=== PATIENT | female | born 1940 | race Caucasian/White ===

== ENCOUNTER → 2016-10-09 | Outpatient (CLI) | payer BC ==
[~2016-10-09] MED LIST: IBUP-1050 PO; LEVO75TA PO; TRAMTAB5 PO
--- NOTE | 2016-10-09 14:27 | DIAGNOSTIC IMAGING REPORT ---
KUB CLINICAL HISTORY: PAIN IN LOWER ABDOMEN pain. Nephrocalcinosis. COMPARISON STUDY: 01/20/2016 FINDINGS: Calcification medial to leads to the right of the transverse process of L3. This measures 5 mm and is unchanged from the prior study. Renal and psoas shows otherwise are unremarkable. Bowel pattern is nonobstructive. IMPRESSION: 1. 5 mm calcification medial right kidney. 2. Nonobstructive bowel pattern. 3. No change from the prior study. Electronically signed by: Konrad hC M.D. 10/09/2016 2:26 PM Dictated Date/Time: 10/09/2016 2:25 PM
--- NOTE | 2016-10-09 14:33 | DIAGNOSTIC IMAGING REPORT ---
LUMBAR SPINE 5 VIEWS HISTORY: Pain PAIN IN LOWER BACK M54.5 COMPARISON: None. FINDINGS: Mild S-shaped scoliosis. Moderate degenerative intervertebral disc change. Grade 1. Reversal subluxation L4 and L5 secondary to degenerative changes of posterior elements. Calcification measuring 5 mm medial to the right kidney. No subluxation. The 10th IMPRESSION: 1. Degenerative change and scoliosis of the lumbar spine. 2. No acute process. 3. 5 mm calcification medial margin right kidney Electronically signed by: Konrad Ch M.D. 10/09/2016 2:32 PM Dictated Date/Time: 10/09/2016 2:31 PM
[2016-10-09 14:41] LABS: BASO % 0.2 %; BASO ABS # 0.02 K/uL (0-0.2); COMPLETE YES; EOS % 1.2 %; HEMATOCRIT 46.8 % (37-47); IG% 0.2 %; LYMPH % 21.4 %; LYMPH ABS # 2.23 K/uL (1.2-3.4); MEAN CELL VOLUME 89.3 fL (80-100); MEAN CORPUSCULAR HEMOGLOBIN 29.8 pg (25-34); MEAN CORPUSCULAR HGB CONC 33.3 g/dl (32-36); MEAN PLATELET VOLUME 10.2 fL (7.4-10.4); MONO % 6.2 %; NEUT % 70.8 %; PLATELET COUNT 269 K/uL (130-400); RED BLOOD COUNT 5.24 M/uL (4.2-5.4); WHITE BLOOD COUNT 10.43 K/uL (4.8-10.8)
[2016-10-09 15:17] LABS: BLOOD UREA NITROGEN 11 mg/dl (7-18); CALCIUM 9.3 mg/dl (8.5-10.1); CARBON DIOXIDE 32 mmol/L (21-32); CHLORIDE 108 mmol/L (98-107); CREATININE 0.88 mg/dl (0.60-1.20); GLUCOSE 84 mg/dl (70-99); POTASSIUM 3.9 mmol/L (3.5-5.1); SODIUM 147 mmol/L (136-145)
[2016-10-09 15:27] LABS: THYROID STIMULATING HORMONE 0.318 uIu/ml (0.300-4.500)
== END | disposition home or self-care (01) ==
LOC: C.RAD 13:03
PROVIDERS: ATTEND Family Medicine
DX: M54.5 Low back pain (principal); E03.9 Hypothyroidism, unspecified

== ENCOUNTER 2016-10-26 11:04 | Emergency (ER) | payer BC ==
[~2016-10-26] VITALS: Ht 157.5 cm; Wt 59.0 kg
[~2016-10-26 11:04] MED LIST changes: -IBUP-1050 PO
[2016-10-26 11:07] VITALS: TEMP 37; Ht 157.5 cm; Wt 59.0 kg
[2016-10-26] MEDS ORDERED: IBUP-1050 PO (11:32)
[2016-10-26] MEDS ORDERED: SODIUM CHLORIDE 0.9% 1000ML 1,000 ML IV STA (11:39)
[2016-10-26] MEDS ORDERED: SODIUM CHLORIDE 0.9% 500ML 500 ML IV STA (11:39)
[2016-10-26 11:50] LABS: BASO % 0.1 %; BASO ABS # 0.01 K/uL (0-0.2); COMPLETE YES; EOS % 0.3 %; HEMATOCRIT 48.6 % (37-47); IG% 0.3 %; LYMPH % 5.1 %; LYMPH ABS # 0.39 K/uL (1.2-3.4); MEAN CELL VOLUME 87.6 fL (80-100); MEAN CORPUSCULAR HEMOGLOBIN 29.7 pg (25-34); MEAN PLATELET VOLUME 10.1 fL (7.4-10.4); MONO % 10.1 %; NEUT % 84.1 %; PLATELET COUNT 231 K/uL (130-400); RED BLOOD COUNT 5.55 M/uL (4.2-5.4); WHITE BLOOD COUNT 7.61 K/uL (4.8-10.8)
[2016-10-26 11:59] LABS: ALT/SGPT 16 U/L (12-78); AST/SGOT 19 U/L (15-37); BLOOD UREA NITROGEN 13 mg/dl (7-18); BUN/CREATININE RATIO 14.4 (10-20); CALCIUM 8.9 mg/dl (8.5-10.1); CARBON DIOXIDE 28 mmol/L (21-32); CHLORIDE 105 mmol/L (98-107); CREATININE 0.88 mg/dl (0.60-1.20); GLUCOSE 102 mg/dl (70-99); POTASSIUM 3.6 mmol/L (3.5-5.1); SODIUM 142 mmol/L (136-145)
[2016-10-26 12:02] LABS: ALKALINE PHOSPHATASE 93 U/L (45-117)
[2016-10-26 12:04] LABS: URINE APPEARANCE CLEAR (CLEAR); URINE BILIRUBIN NEG (NEG); URINE COLOR YELLOW; URINE EPITHELIAL CELL AUTO >30 /lpf (0-5); URINE NITRITE NEG (NEG); URINE PH 5.5 (4.5-7.5); URINE SPECIFIC GRAVITY 1.019 (1.000-1.030); UROBILINOGEN NEG (NEG); ZZUR CULT IF INDIC CLEAN CATCH NO
[2016-10-26 12:07] LABS: MANUAL MICROSCOPIC REQUIRED? NO; REVIEW REQ? YES
--- NOTE | 2016-10-26 12:09 | DIAGNOSTIC IMAGING REPORT ---
ABDOMEN AND PELVIS CT WITHOUT CONTRAST CT DOSE: 268.83 mGy.cm HISTORY: Flank pain R flank pain TECHNIQUE: Multiaxial CT images of the abdomen and pelvis were performed without contrast. COMPARISON STUDY: The 2014 FINDINGS: Lung bases are clear. Hypodensities in process within the liver and spleen are unchanged. Small benign nodule of the right adrenal is unchanged. Several punctate nonobstructing left renal calcifications. 8 x 6 mm partially obstructing calculus right renal pelvis. Mild fullness right renal collecting system. Several additional nonobstructing cortical right renal calcifications. Pancreas is unremarkable. Bowel pattern is remarkable for chronic sigmoid diverticulosis. This is unchanged in the prior exam. There is no evidence for acute diverticulitis. IMPRESSION: 1. Partially obstructing calculus right renal pelvis measuring 8 x 6 mm. 2. Fullness right renal collecting system. 3. Additional nonobstructing renal calcifications bilaterally. 4. Chronic sigmoid diverticulosis. Electronically signed by: Konrad Ch M.D. 10/26/2016 12:08 PM Dictated Date/Time: 10/26/2016 12:04 PM
--- NOTE | 2016-10-26 12:18 | EMERGENCY ROOM VISIT NOTE ---
History Report prepared by Devorah: Janet Orourke Under the Supervision of: Dr. Shruti Vaughan M.D. First contact with patient: 11:28 Chief Complaint: FLANK PAIN Stated Complaint: RT FLANK PAIN History of Present Illness The patient is a 76 year old female who presents to the Emergency Room with complaints of persistent right flank pain. Her pain sometimes radiates to the groin. She states that she has a kidney stone which she believes might be the source of her pain. She is feeling dehydrated, but reports being unable to drink water. She has a cough and a "grinding headache". She gets migraines sometimes, but her current headache is unlike her migraines. She denies any fever. 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 Review of Systems See HPI for pertinent positives & negatives. A total of 10 systems reviewed and were otherwise negative. Past Medical & Surgical Medical Problems: (1) Kidney stones Surgical Problems: (1) H/O lithotripsy Family History Cancer Diabetes mellitus Heart disease Hypertension Lung disease Social History Smoking Status: Former Smoker Drug Use: none Marital Status: Housing Status: lives with significant other Occupation Status: retired Current/Historical Medications Scheduled Levothyroxine Sodium (Synthroid), 75 MCG PO QAM Scheduled PRN Ibuprofen (Advil), 200 MG PO DAILY PRN for Pain Allergies Coded Allergies: Ciprofloxacin (Verified Allergy, Mild, REDNESS AND ITCHING, 10/26/16) Morphine (Verified Allergy, Mild, VOMITING, 10/26/16) Penicillins (Verified Allergy, Mild, ITCHING, 10/26/16) Physical Exam Vital Signs Date Time Temp Pulse Resp B/P Pulse Ox O2 Delivery O2 Flow Rate FiO2 10/26/16 14:40 70 18 110/68 98 10/26/16 14:04 87 21 10/26/16 14:00 124/67 10/26/16 13:49 82 20 92 10/26/16 13:34 78 23 93 10/26/16 13:30 152/72 10/26/16 12:49 84 21 96 10/26/16 12:34 82 18 95 10/26/16 12:30 118/58 10/26/16 12:30 80 16 118/58 96 Room Air 10/26/16 12:27 81 10/26/16 12:08 100/72 10/26/16 11:48 79 18 167/85 93 Room Air 10/26/16 11:07 37.0 103 20 128/67 93 Physical Exam Vital signs reviewed. General: Well-appearing, in no significant distress. HEENT: No scleral icterus, PERRLA, neck supple. Atraumatic. Cardiovascular: Regular rate and rhythm, no extra sounds. Pulmonary: Clear to auscultation bilaterally, normal work of breathing. Abdomen: Soft, nontender, nondistended, positive bowel sounds. Musculoskeletal: Atraumatic, no peripheral edema, mildly tender to palpation of right flank, no CVA tenderness. Neurologic: Patient awake alert and oriented x 3. Skin: Warm, dry, no rash Medical Decision & Procedures ER Provider Diagnostic Interpretation: CT results as stated below per my interpretation and radiologist interpretation. Other radiology results as stated below per my review and radiologist interpretation: ABDOMEN AND PELVIS CT WITHOUT CONTRAST CT DOSE: 268.83 mGy.cm HISTORY: Flank pain R flank pain TECHNIQUE: Multiaxial CT images of the abdomen and pelvis were performed without contrast. COMPARISON STUDY: The 2014 FINDINGS: Lung bases are clear. Hypodensities in process within the liver and spleen are unchanged. Small benign nodule of the right adrenal is unchanged. Several punctate nonobstructing left renal calcifications. 8 x 6 mm partially obstructing calculus right renal pelvis. Mild fullness right renal collecting system. Several additional nonobstructing cortical right renal calcifications. Pancreas is unremarkable. Bowel pattern is remarkable for chronic sigmoid diverticulosis. This is unchanged in the prior exam. There is no evidence for acute diverticulitis. IMPRESSION: 1. Partially obstructing calculus right renal pelvis measuring 8 x 6 mm. 2. Fullness right renal collecting system. 3. Additional nonobstructing renal calcifications bilaterally. 4. Chronic sigmoid diverticulosis. Electronically signed by: Konrad Ch M.D. 10/26/2016 12:08 PM CHEST 2 VIEWS ROUTINE CLINICAL HISTORY: Right flank pain. COMPARISON STUDY: Chest radiograph April 21, 2015. FINDINGS: Incidental note is made of bilateral breast implants. Lung volumes are normal. There is no pneumothorax or pleural effusion. Pulmonary vascularity is normal. Cardiac size is normal. Mediastinal contours are normal. The appearance of the chest is unchanged. IMPRESSION: No acute cardiopulmonary findings. Electronically signed by: Jack Rojas M.D. 10/26/2016 1:14 PM Laboratory Results 10/26/16 11:25 Red Blood Count 5.55, Mean Corpuscular Volume 87.6, Mean Corpuscular Hemoglobin 29.7, Mean Corpuscular Hemoglobin Concent 34.0, Mean Platelet Volume 10.1, Neutrophils (%) (Auto) 84.1, Lymphocytes (%) (Auto) 5.1, Monocytes (%) (Auto) 10.1, Eosinophils (%) (Auto) 0.3, Basophils (%) (Auto) 0.1, Neutrophils # (Auto ) 6.40, Lymphocytes # (Auto) 0.39, Monocytes # (Auto) 0.77, Eosinophils # (Auto ) 0.02, Basophils # (Auto) 0.01 10/26/16 11:25 Test 10/26/16 11:10 10/26/16 11:25 10/26/16 11:46 Urine Color YELLOW Urine Appearance CLEAR (CLEAR) Urine pH 5.5 (4.5-7.5) Urine Specific [place] 1.019 (1.000-1.030) Urine Protein 2+ (NEG) Urine Glucose (UA) NEG (NEG) Urine Ketones 1+ (NEG) Urine Occult Blood 3+ (NEG) Urine Nitrite NEG (NEG) Urine Bilirubin NEG (NEG) Urine Urobilinogen NEG (NEG) Urine Leukocyte Esterase TRACE (NEG) Urine WBC (Auto) 5-10 /hpf (0-5) Urine RBC (Auto) >30 /hpf (0-4) Urine Hyaline Casts (Auto) 1-5 /lpf (0-5) Urine Epithelial Cells (Auto) >30 /lpf (0-5) Urine Bacteria (Auto) NEG (NEG) Urine Renal Epithelial Cells /lpf (0-5) White Blood Count 7.61 K/uL (4.8-10.8) Red Blood Count 5.55 M/uL (4.2-5.4) Hemoglobin 16.5 g/dL (12.0-16.0) Hematocrit 48.6 % (37-47) Mean Corpuscular Volume 87.6 fL (80-100) Mean Corpuscular Hemoglobin 29.7 pg (25-34) Mean Corpuscular Hemoglobin Concent 34.0 g/dl (32-36) Platelet Count 231 K/uL (130-400) Mean Platelet Volume 10.1 fL (7.4-10.4) Neutrophils (%) (Auto) 84.1 % Lymphocytes (%) (Auto) 5.1 % Monocytes (%) (Auto) 10.1 % Eosinophils (%) (Auto) 0.3 % Basophils (%) (Auto) 0.1 % Neutrophils # (Auto) 6.40 K/uL (1.4-6.5) Lymphocytes # (Auto) 0.39 K/uL (1.2-3.4) Monocytes # (Auto) 0.77 K/uL (0.11-0.59) Eosinophils # (Auto) 0.02 K/uL (0-0.5) Basophils # (Auto) 0.01 K/uL (0-0.2) RDW Standard Deviation 42.9 fL (36.4-46.3) RDW Coefficient of Variation 13.5 % (11.5-14.5) Immature Granulocyte % (Auto) 0.3 % Immature Granulocyte # (Auto) 0.02 K/uL (0.00-0.02) Anion Gap 9.0 mmol/L (3-11) Est Creatinine Clear Calc Drug Dose 43.0 ml/min Estimated GFR () 74.0 Estimated GFR (Non- 63.8 BUN/Creatinine Ratio 14.4 (10-20) Calcium Level 8.9 mg/dl (8.5-10.1) Total Bilirubin 0.3 mg/dl (0.2-1) Direct Bilirubin < 0.1 mg/dl (0-0.2) Aspartate Amino Transf (AST/SGOT) 19 U/L (15-37) Alanine Aminotransferase (ALT/SGPT) 16 U/L (12-78) Alkaline Phosphatase 93 U/L (45-117) Total Protein 7.7 gm/dl (6.4-8.2) Albumin 4.0 gm/dl (3.4-5.0) Influenza Type A (RT-PCR) Neg for Influ A (NEG) Influenza Type A Antigen Neg for Influ A (NEG) Influenza Type B Antigen Neg for Influ B (NEG) Influenza Type B (RT-PCR) Neg for Influ B (NEG) Laboratory results per my review. Medications Administered Medications (Trade) Dose Ordered Sig/Kim Route Start Time Stop Time Status Last Admin Dose Admin Sodium Chloride 500 ml @ 999 mls/hr Q31M STAT IV 10/26/16 11:39 10/26/16 12:09 DC 10/26/16 11:53 999 MLS/HR Sodium Chloride (Nss 1000ml) 1,000 ml @ 125 mls/hr Q8H STAT IV 10/26/16 11:39 10/26/16 14:57 DC 10/26/16 12:40 125 MLS/HR ED Course 1139: Past medical records reviewed. The patient was evaluated in room A10. A complete history and physical examination was performed. NSS 1000 ml @ 125 mls/ hr IV, NSS 500 ml @ 999 mls/hr IV. 1350: I reassessed the patient at this time. She is feeling better and resting comfortably. I discussed the results and treatment plan with the patient. I answered all pertaining questions that she had. She expressed understanding and verbalized agreement. The patient will be discharged home. Medical Decision Differential diagnosis: Etiologies such as renal colic, appendicitis, diverticulitis, mesenteric ischemia, aortic pathology, infections, inflammatory bowel disease, PUD, biliary pathology, UTI, as well as others were entertained. This pt was evaluated and appeared to be in some discomfort. IV access was obtained and lab work was drawn. Recent XR results were reviewed. CT abd and pelvis was performed to confirm this stone as the source of pain for 2 weeks. The stone is 8x6 mm and partially obstructing. Pt was hydrated with NSS, she declined pain medication. Pt was informed of the findings. An appt with Dr Edwards was scheduled for early next week (5 days). There is no sign of infection. Pt was asked to return to the ED for worsening of symptoms or any medical concerns. Impression Primary Impression: Calculus of proximal right ureter Scribe Attestation The scribe's documentation has been prepared under my direction and personally reviewed by me in its entirety. I confirm that the note above accurately reflects all work, treatment, procedures, and medical decision making performed by me. Departure Information Dispostion Home / Self-Care Referrals Stuart Templeton D.O. (PCP) Armani Paula MD Forms HOME CARE DOCUMENTATION FORM, IMPORTANT VISIT INFORMATION Patient Instructions My [facility] Additional Instructions Diagnosis: Right ureteral calculus [place] one tablet every 4-6 hours as needed for severe pain. Do not drive after taking this medication. Drink plenty of clear fluids. Follow-up with urology, Dr. xavi Paula on Sunday10/31/16 at 9:20 as scheduled by case management. Turn to the emergency department for worsening of pain, fever or any medical concerns.
--- NOTE | 2016-10-26 13:16 | DIAGNOSTIC IMAGING REPORT ---
CHEST 2 VIEWS ROUTINE CLINICAL HISTORY: Right flank pain. COMPARISON STUDY: Chest radiograph April 21, 2015. FINDINGS: Incidental note is made of bilateral breast implants. Lung volumes are normal. There is no pneumothorax or pleural effusion. Pulmonary vascularity is normal. Cardiac size is normal. Mediastinal contours are normal. The appearance of the chest is unchanged. IMPRESSION: No acute cardiopulmonary findings. Electronically signed by: Jack Rojas M.D. 10/26/2016 1:14 PM Dictated Date/Time: 10/26/2016 1:13 PM
[2016-10-26 14:32] LABS: INFLUENZA A PCR Neg for Influ A (NEG); INFLUENZA B PCR Neg for Influ B (NEG)
[2016-10-26 14:40] VITALS: BP 110/68; PULSE 70; O2SAT 98
== END 2016-10-26 14:43 | disposition home or self-care (01) ==
LOC: C.EDB 11:05 → C.EDA 14:43
DX: N20.1 Calculus of ureter (principal); Z87.442 Personal history of urinary calculi; Z87.891 Personal history of nicotine dependence; Z79.899 Other long term (current) drug therapy

== ENCOUNTER → 2016-10-30 | Outpatient (CLI) | payer BC ==
[~2016-10-30] MED LIST changes: +IBUP-1050 PO; -TRAMTAB5 PO
--- NOTE | 2016-10-31 08:02 | MAMMOGRAPHY REPORT ---
BILATERAL DIGITAL SCREENING MAMMOGRAM WITH CAD: 10/30/2016 CLINICAL HISTORY: Routine screening examination. TECHNIQUE: Bilateral CC and MLO views of the breasts with and without implant displacement views wer e obtained. Current study was also evaluated with a Computer Aided Detection (CAD) system. COMPARISON: Comparison is made to exams dated: 10/27/2015 mammogram, 09/21/2014 mammogram, 11/04/2013 m ammogram, 09/21/2014 ultrasound, 11/01/2012 mammogram, and 10/31/2011 mammogram - [facility] enter. BREAST COMPOSITION: There are scattered areas of fibroglandular density in both breasts. FINDINGS: Bilateral subglandular silicone implants are stable compared to prior mammograms. A 4 mm circumscribed mass in the left breast, along the posterior nipple line on the MLO views is stable ma mmographically dating back to at least 11/01/2012, therefore likely benign. Global asymmetry of the right breast compared to the left is unchanged on all available prior mammograms dating back to at least 10/09/2007, most likely the patient's baseline. There are scattered benign rim calcifications bilaterally. No new suspicious mass, architectural distortion or cluster of microcalcifications is seen. IMPRESSION: ACR BI-RADS CATEGORY 1: NEGATIVE There is no mammographic evidence of malignancy. A 1 year screening mammogram is recommended. The p atient will receive written notification of the results. Approximately 10% of breast cancers are not detected with mammography. A negative mammographic repor t should not delay biopsy if a clinically suggestive mass is present. Marley Bryant M.D. ay/:10/30/2016 16:39:07 Museum Director: Janay ORTA(Ricky)(Yany)([place]), [facility] letter sent: Normal 1/2 BI-RADS Code: ACR BI-RADS Category 1: Negative
== END | disposition home or self-care (01) ==
LOC: C.MAMM 14:46
PROVIDERS: ATTEND Family Medicine
DX: Z12.31 Encounter for screening mammogram for malignant neoplasm of breast (principal); Z98.82 Breast implant status; M85.851 Other specified disorders of bone density and structure, right thigh; M85.852 Other specified disorders of bone density and structure, left thigh

== ENCOUNTER → 2016-11-16 | Outpatient (CLI) | payer BC ==
--- NOTE | 2016-11-16 14:15 | DIAGNOSTIC IMAGING REPORT ---
KUB CLINICAL HISTORY: Nephrolithiasis. Study. COMPARISON STUDY: 10/09/2016 FINDINGS: Is a lumbar levoscoliosis. There are stable pelvic basin calcifications likely represent phleboliths. There is a 12 mm calcification projected over the region the right renal pelvis consistent with a calculus. There is additional punctate mid pole right renal calcification. There are 2 punctate left renal calcifications. The findings are consistent with additional tiny renal calculi. IMPRESSION: 1. Bilateral nephrolithiasis including a 12 mm calculus at the level of the right renal pelvis Electronically signed by: Bogdan Broussard M.D. 11/16/2016 2:14 PM Dictated Date/Time: 11/16/2016 2:13 PM
== END | disposition home or self-care (01) ==
LOC: C.RAD 14:00
PROVIDERS: ATTEND Urology
DX: N20.0 Calculus of kidney (principal)

== ENCOUNTER → 2016-11-17 | Day surgery (SDC) | payer BC ==
[2016-11-02 08:40] VITALS: Ht 159.4 cm; Wt 52.3 kg
[2016-11-06 10:53] LABS: URINE APPEARANCE CLEAR (CLEAR); URINE BILIRUBIN NEG (NEG); URINE COLOR YELLOW; URINE EPITHELIAL CELL AUTO >30 /lpf (0-5); URINE NITRITE NEG (NEG); UROBILINOGEN NEG (NEG)
[2016-11-06 11:18] LABS: MANUAL MICROSCOPIC REQUIRED? NO; REVIEW REQ? YES
[~2016-11-17] VITALS: Ht 159.4 cm; Wt 52.3 kg
[~2016-11-17] MED LIST changes: +ACETAMINOPHEN 325 MG TAB PO PRN; +ATROPINE SULFATE 0.1 MG/ML 5ML SYR IV PRN; +EpHEDrine SULFATE INJ 50 MG/ML AMP IV PRN; +EpHEDrine SULFATE INJ 50 MG/ML AMP ONE; +FENTANYL CITRATE INJ 50 MCG/1 ML 2 ML VIAL IV PRN; +FENTANYL CITRATE INJ 50 MCG/1 ML 2 ML VIAL ONE; +GENTAMICIN INJ 80 MG in DEXTROSE 5% 100ML 100 ML IV SCH; +GENTAMICIN SULFATE 40 MG/ML VIAL IV SCH; +LACTATED RINGER'S 1000ML 1,000 ML IV SCH; +LIDOCAINE HCL 2% 2 ML VIAL (20MG/ML) ONE; +MIDAZOLAM HCL 1 MG/ML 2ML VIAL ONE; +ONDANSETRON INJ 2 MG/ML 2 ML VIAL IV PRN; +ONDANSETRON INJ 2 MG/ML 2 ML VIAL ONE; +PROPOFOL IV EMULSION 10 MG/ML 20 ML VIAL IV ONE; +SODIUM CHLORIDE 0.9% 1000ML 1,000 ML IV SCH; +SODIUM CHLORIDE 0.9% INJ 10 ML VIAL ONE; +TAMSULOSIN HCL 0.4 MG CAP PO SCH
--- NOTE | 2016-11-17 07:04 | History & Physical Bridge Note ---
H&P Re-Evaluation Bridge Note: I have examined the patient, reviewed the History & Physical and in the interval since the performance of the History & Physical I have noted the following changes of clinical significance: No changes noted
--- NOTE | 2016-11-17 07:38 | Discharge Instructions-SurgCtr ---
Discharge Instructions Date of Service Nov 17, 2016. Visit Reason for Visit: Stones, N20.0, Discharge Discharge Diagnosis / Problem: stones Discharge Goals Goal(s): Decrease discomfort, Improve function, Increase independence, Improve disease control Medications Stopped Medications Name(s): LAST IBUPROFEN 2 WK AGO Activity Recommendations Activity Limitations: resume your previous activity Lifting Limitations: none Exercise/Sports Limitations: none May Resume Sexual Activity: when tolerated Shower/Bathe: no limitations Driving or Machine Use: no limitations Anesthesia . Post Anesthesia Instructions: If you have had General Anesthesia or IV Sedation: * Do not drive today. * Resume driving when surgeon permits. * Do not make important decisions or sign legal documents today. * Call surgeon for: 1. Temperature elevations greater than 101 degrees F. 2. Uncontrollable pain. 3. Excessive bleeding. 4. Persistent nausea and vomiting. 5. Medication intolerance (nausea, vomiting or rash). * For nausea and vomiting use only clear liquids such as: tea, soda, bouillon until nausea subsides, then gradually increase diet as tolerated. * If you have any concerns or questions, call your surgeon's office. If physician is unavailable and it is an emergency, call 911 or go to the nearest emergency room. . Diet Recommendations Home Diet: no limitations Procedures Procedures Performed: Right Extracorporeal Shock Wave Lithotripsy - Renal Pending Studies Studies pending at discharge: no Medical Emergencies . Who to Call and When: Medical Emergencies: If at any time you feel your situation is an emergency, please call 911 immediately. . Non-Emergent Contact Non-Emergency issues call your: Urologist Call Non-Emergent contact if: you have a fever, temperature is above 101.5, your pain is not controlled, your pain is worsening, your pain is unusual for you . . "Provider Documentation" section prepared by Jeffrey Dinero.
--- NOTE | 2016-11-17 07:45 | [facility] Post Operative Brief Note ---
Immediate Operative Summary Operative Date Nov 17, 2016. Pre-Operative Diagnosis Right Renal Calculi Post-Operative Diagnosis Same Procedure(s) Performed Right Extracorporeal Shock Wave Lithotripsy - Renal Surgeon Dr. Bryant [employer] Operations Specialist Surgeon(s) None Estimated Blood Loss 0 mL Findings R renal (UPJ) stone - appeared to fragment nicely Specimens None Anesthesia gen Complication(s) None Disposition Recovery Room / PACU (stable)
[2016-11-17 08:48] VITALS: TEMP 36.9
[2016-11-17 09:00] VITALS: BP 108/71; PULSE 71; O2SAT 95
--- NOTE | 2016-11-17 09:10 | Anesthesiology Progress Note ---
Anesthesia Post Op Note Date & Time Nov 17, 2016 at 09:10 Vital Signs Pain Intensity: 4 Vital Signs Past 12 Hours Date Time Temp Pulse Resp B/P Pulse Ox O2 Delivery O2 Flow Rate FiO2 11/17/16 09:00 71 18 108/71 95 Room Air 11/17/16 08:48 36.9 79 18 113/76 95 Room Air 11/17/16 08:25 111/89 11/17/16 08:24 73 21 11/17/16 08:24 36.8 11/17/16 08:24 73 21 100 11/17/16 08:21 106/86 11/17/16 08:19 74 28 11/17/16 08:19 74 28 98 11/17/16 08:15 129/62 11/17/16 08:14 78 14 100 11/17/16 08:14 76 14 11/17/16 08:10 110/71 11/17/16 08:09 72 15 11/17/16 08:09 78 15 100 11/17/16 08:05 124/66 11/17/16 08:04 72 14 11/17/16 08:04 73 14 100 11/17/16 08:00 130/71 11/17/16 07:59 75 15 11/17/16 07:59 75 15 100 11/17/16 07:54 73 12 133/72 100 11/17/16 07:54 73 12 11/17/16 07:54 36.0 73 16 133/72 100 Diffusion Mask 6 11/17/16 06:31 36.4 58 22 121/92 96 Room Air Notes Mental Status: alert / awake / arousable, participated in evaluation Pt Amnestic to Procedure: Yes Nausea / Vomiting: adequately controlled Pain: adequately controlled Airway Patency, RR, SpO2: stable & adequate BP & HR: stable & adequate Hydration State: stable & adequate Anesthetic Complications: no major complications apparent
--- NOTE | 2016-11-17 11:15 | OPERATIVE REPORT ---
DATE OF OPERATION: 11/17/2016 PREOPERATIVE DIAGNOSIS: Right renal calculus. POSTOPERATIVE DIAGNOSIS: Right renal calculus. PROCEDURE PERFORMED: Right extracorporeal shockwave lithotripsy. SURGEON: Dr. Erlin Bryant. ANESTHESIA: General. ESTIMATED BLOOD LOSS: 0. URINE OUTPUT: Not recorded. SPECIMENS: There were no specimens. DRAINS: There were no drains. COMPLICATIONS: There were no complications. DESCRIPTION OF THE PROCEDURE: Licha Irene was identified in the preoperative holding area. Appropriate informed consents were reviewed and completed and the patient was transported to the operating suite. Upon arrival, she received appropriate preoperative antibiotics as well as general anesthesia. She was placed in supine position. Her stone was localized under fluoroscopy. Lithotripsy was commenced with a total of 2500 shocks delivered to the stone. Further details can be found on the [place] [facility] Management Information Sheet. At the conclusion of the case, the patient was extubated and taken to the PACU in stable condition. I attest to the content of the Intraoperative Record and any orders documented therein. Any exceptio ns are noted below.
== END | disposition home or self-care (01) ==
LOC: X.SURG 06:08
PROVIDERS: ATTEND Urology
DX: N20.0 Calculus of kidney (principal); Z90.89 Acquired absence of other organs; Z98.890 Other specified postprocedural states; Z68.20 Body mass index [BMI] 20.0-20.9, adult; Z87.891 Personal history of nicotine dependence; Z88.1 Allergy status to other antibiotic agents; Z88.0 Allergy status to penicillin; Z88.5 Allergy status to narcotic agent; Z80.1 Family history of malignant neoplasm of trachea, bronchus and lung; Z80.3 Family history of malignant neoplasm of breast; Z82.3 Family history of stroke; Z83.3 Family history of diabetes mellitus

== ENCOUNTER → 2016-11-30 | Outpatient (CLI) | payer BC ==
[~2016-11-30] MED LIST changes: -ACETAMINOPHEN 325 MG TAB PO PRN; -ATROPINE SULFATE 0.1 MG/ML 5ML SYR IV PRN; -EpHEDrine SULFATE INJ 50 MG/ML AMP IV PRN; -EpHEDrine SULFATE INJ 50 MG/ML AMP ONE; -FENTANYL CITRATE INJ 50 MCG/1 ML 2 ML VIAL IV PRN; -FENTANYL CITRATE INJ 50 MCG/1 ML 2 ML VIAL ONE; -GENTAMICIN INJ 80 MG in DEXTROSE 5% 100ML 100 ML IV SCH; -GENTAMICIN SULFATE 40 MG/ML VIAL IV SCH; -LACTATED RINGER'S 1000ML 1,000 ML IV SCH; -LIDOCAINE HCL 2% 2 ML VIAL (20MG/ML) ONE; -MIDAZOLAM HCL 1 MG/ML 2ML VIAL ONE; -ONDANSETRON INJ 2 MG/ML 2 ML VIAL IV PRN; -ONDANSETRON INJ 2 MG/ML 2 ML VIAL ONE; -PROPOFOL IV EMULSION 10 MG/ML 20 ML VIAL IV ONE; -SODIUM CHLORIDE 0.9% 1000ML 1,000 ML IV SCH; -SODIUM CHLORIDE 0.9% INJ 10 ML VIAL ONE; -TAMSULOSIN HCL 0.4 MG CAP PO SCH
--- NOTE | 2016-11-30 12:39 | DIAGNOSTIC IMAGING REPORT ---
KUB CLINICAL HISTORY: Nephrolithiasis. COMPARISON STUDY: CT of the abdomen and pelvis October 26, 2016 and KUB November 16, 2016. FINDINGS: Pelvic calcifications are unchanged and likely reflect phleboliths and vascular calcifications. There are few small left renal calculus which measure up to 3 mm. The right renal pelvis calculus shown on exam of November 16, 2016 is no longer visualized. IMPRESSION: 1. Nonvisualization of the right renal pelvis calculus shown on exam of November 16, 2016. No ureteral calculi or fragments identified. 2. Punctate left renal calculi. Electronically signed by: Jack Rojas M.D. 11/30/2016 12:37 PM Dictated Date/Time: 11/30/2016 12:32 PM
== END | disposition home or self-care (01) ==
LOC: C.RAD 12:03
PROVIDERS: ATTEND Urology
DX: N20.0 Calculus of kidney (principal)

== ENCOUNTER → 2016-11-30 | Outpatient (CLI) | payer BC | END | disposition home or self-care (01) | LOC: C.LABSPEC 17:29 | PROVIDERS: ATTEND Urology | DX: N20.0 Calculus of kidney (principal) ==

== ENCOUNTER → 2017-10-31 | Outpatient (CLI) | payer BC ==
--- NOTE | 2017-11-01 08:03 | MAMMOGRAPHY REPORT ---
BILATERAL DIGITAL DIAGNOSTIC MAMMOGRAM TOMOSYNTHESIS WITH CAD: 10/31/2017 CLINICAL HISTORY: 77-year-old woman presents with intermittent right breast itchiness for which she i s using a steroid cream prescribed by Dr. Yip. Also due for annual screening mammography. TECHNIQUE: Bilateral CC and MLO views of the breasts with and without implant displacement views were obtained. Tomosynthesis was also performed on the implant displaced views. Current study was also evaluated with a Computer Aided Detection (CAD) system. COMPARISON: Comparison is made to exams dated: 10/30/2016 mammogram, 10/27/2015 mammogram, 09/21/2014 ramandeep mogram, 11/04/2013 mammogram, 11/01/2012 mammogram, and 10/31/2011 mammogram - [facility] BREAST COMPOSITION: There are scattered areas of fibroglandular density in both breasts. FINDINGS: Bilateral subglandular silicone implants are stable compared to prior mammograms. There is stable focal asymmetry in the right upper outer quadrant, which appears similar to prior mammograms dating back to at least 2008, therefore likely benign. There are a few benign rim calcifications sca ttered in the breasts. No suspicious mass, architectural distortion or cluster of microcalcifications is seen. No focal skin thickening appreciated. IMPRESSION: ACR BI-RADS CATEGORY 2: BENIGN 1. Stable bilateral mammograms, without mammographic evidence of malignancy. 2. Continued clinical follow-up is recommended for the chronic, intermittent right breast pruritus. If any skin changes or nipple changes occur, reconsultation with a breast surgeon is recommended. These results and recommendations were discussed with the patient at the time of the exam. Approximately 10% of breast cancers are not detected with mammography. A negative mammographic report should not delay biopsy if a clinically suggestive mass is present. Marley Bryant M.D. ay/:10/31/2017 15:40:01 Mystery Shopper: Sheela THAKUR)(Yany), [facility] letter sent: Normal 1/2 BI-RADS Code: ACR BI-RADS Category 2: Benign
== END | disposition home or self-care (01) ==
LOC: C.MAMM 12:27
PROVIDERS: ATTEND Family Medicine
DX: R92.8 Other abnormal and inconclusive findings on diagnostic imaging of breast (principal)

== ENCOUNTER → 2017-11-30 | Outpatient (CLI) | payer BC ==
--- NOTE | 2017-11-30 12:11 | DIAGNOSTIC IMAGING REPORT ---
KUB CLINICAL HISTORY: Nephrolithiasis. COMPARISON STUDY: CT of the abdomen and pelvis October 26, 2016 and KUB November 30, 2016. FINDINGS: Pelvic calcifications represent phleboliths and vascular calcifications. A few small left renal calculi measure up to 4 mm. The bowel gas pattern is normal. No ureteral calculi are identified by radiography. IMPRESSION: 1. Several small left renal calculi. 2. No ureteral calculi identified. Electronically signed by: Jack Rojas M.D. 11/30/2017 12:10 PM Dictated Date/Time: 11/30/2017 12:08 PM
== END | disposition home or self-care (01) ==
LOC: C.RAD 11:25
PROVIDERS: ATTEND Urology
DX: N20.0 Calculus of kidney (principal)

== ENCOUNTER 2017-12-12 07:28 | Emergency (ER) | payer BC ==
[2017-12-12 07:34] VITALS: TEMP 36.8; O2SAT 96; Ht 160 cm
[2017-12-12] MEDS ORDERED: MECLIZINE HCL 25 MG TAB PO STA (08:00)
[2017-12-12 08:25] LABS: BASO % 0.2 %; BASO ABS # 0.01 K/uL (0-0.2); EOS % 1.4 %; EOS ABS # 0.09 K/uL (0-0.5); HEMATOCRIT 45.9 % (37-47); HEMOGLOBIN 15.6 g/dL (12.0-16.0); IG# 0.01 K/uL (0.00-0.02); LYMPH % 25.3 %; LYMPH ABS # 1.67 K/uL (1.2-3.4); MEAN CELL VOLUME 87.8 fL (80-100); MEAN CORPUSCULAR HEMOGLOBIN 29.8 pg (25-34); MEAN PLATELET VOLUME 9.6 fL (7.4-10.4); MONO % 7.3 %; MONO ABS # 0.48 K/uL (0.11-0.59); NEUT % 65.6 %; NEUT ABS # 4.33 K/uL (1.4-6.5); PLATELET COUNT 241 K/uL (130-400); RED CELL DISTRIBUTION WIDTH CV 13.5 % (11.5-14.5); RED CELL DISTRIBUTION WIDTH SD 43.6 fL (36.4-46.3); WHITE BLOOD COUNT 6.59 K/uL (4.8-10.8)
--- NOTE | 2017-12-12 08:32 | DIAGNOSTIC IMAGING REPORT ---
HEAD WITHOUT CONTRAST (CT) CT DOSE: 537.48 mGy.cm HISTORY: Mental status change headache, dizziness TECHNIQUE: Multiaxial CT images of the head were performed without the use of intravenous contrast. A dose lowering technique was utilized adhering to the principles of ALARA. Comparison: 06/17/2010 Findings: The paranasal sinuses and mastoid air cells are clear. The calvarium and skull base are intact. The ventricles and sulci are within normal limits. There is no mass, hematoma, midline shift, or acute infarct. Impression: No acute intracranial abnormality. The above report was generated using voice recognition software. It may contain grammatical, syntax or spelling errors. Electronically signed by: Konrad Ch M.D. 12/12/2017 8:30 AM Dictated Date/Time: 12/12/2017 8:30 AM
[2017-12-12 08:37] LABS: PTT PATIENT 25.9 SECONDS (21.0-31.0)
[2017-12-12 08:41] LABS: ALBUMIN 3.6 gm/dl (3.4-5.0); ALT/SGPT 16 U/L (12-78); AST/SGOT 20 U/L (15-37); BLOOD UREA NITROGEN 11 mg/dl (7-18); CARBON DIOXIDE 27 mmol/L (21-32); CREATININE 0.81 mg/dl (0.60-1.20); GLUCOSE 100 mg/dl (70-99); POTASSIUM 3.8 mmol/L (3.5-5.1); SODIUM 143 mmol/L (136-145)
[2017-12-12 08:52] LABS: ALKALINE PHOSPHATASE 77 U/L (45-117)
[2017-12-12 10:10] VITALS: BP 148/81; PULSE 62
[2017-12-12] MEDS ORDERED: MECL1TAB42 PO (10:32)
--- NOTE | 2017-12-12 10:33 | EMERGENCY ROOM VISIT NOTE ---
History First contact with patient: 07:37 Chief Complaint: DIZZY Stated Complaint: DIZZY,DISORIENTED Nursing Triage Summary: Pt presents to ed stating, "I've had an intermittent h/a for a couple months. Now I am dizzy. I was too dizzy to even get a shower. I've been dizzy, intermittently, for the past week or so, but now it is constant." Denies n/v. denies any pain History of Present Illness The patient is a 77 year old female who presents to the Emergency Room via private vehicle accompanied by male with complaints of "dizzy, disoriented". The patient states that she has been experiencing headaches for a couple months now. She also notes that she has been experiencing dizziness. She notes a history of dizziness in the past where she had to have an ear nose and throat surgeon. She states that she is concerned she may be experiencing a mini stroke. She states that certain positions make the dizziness much worse. She notes that at this time the headache is feeling much better. It is unilateral in nature on the right side of her head and has been increasing in severity and frequency and feels like pressure. She states that sleep makes the headache better. She notes she did have blurred vision in the past but does not think she has had any recently. She denies any history of migraine, or strokes. There has been no nausea, vomiting or weak there is no chest pain or shortness of breath. She does state that she brought this up with her family doctor however does not recall what was said. There is no speech trouble or weakness. Review of Systems A complete 10-point Review of Systems was discussed with the patient, with pertinent positives and negatives listed in the History of Present Illness. All remaining Review of Systems questions can be considered negative unless otherwise specified. Past Medical/Surgical History Medical Problems: (1) Kidney stones Surgical Problems: (1) H/O lithotripsy Family History Cancer Diabetes mellitus Heart disease Hypertension Lung disease Social History Smoking Status: Never Smoker Drug Use: none Marital Status: Housing Status: lives with significant other Occupation Status: retired Current/Historical Medications Scheduled Levothyroxine Sodium (Synthroid), 75 MCG PO QAM Scheduled PRN Meclizine Hcl (Meclizine Hcl), 1 TAB PO TID PRN for Dizziness or Vertigo Physical Exam Vital Signs Date Time Temp Pulse Resp B/P (MAP) Pulse Ox O2 Delivery O2 Flow Rate FiO2 12/12/17 10:10 62 22 148/81 12/12/17 08:36 57 18 169/79 12/12/17 08:20 Room Air 12/12/17 08:08 59 12/12/17 07:34 36.8 66 18 155/78 96 Room Air Physical Exam VITAL SIGNS - Vital signs and nursing notes were reviewed. Slightly hypertensive at 155/78. Afebrile. GENERAL -77-year-old female appearing her stated age who is in no acute distress. Communicates well with provider and answers questions appropriately. SKIN - Without rashes. No meningeal or petechial rash. HEAD - NC/AT. EYES - PERRL with EOMI bilaterally. Sclera anicteric. Palpebral conjunctiva pink and moist with no injection noted. EARS - No deformities of external structures noted on gross examination bilaterally. No pain elicited with palpation of the tragus bilaterally. External auditory canals without discharge or otorrhea. Tympanic membranes pearly schafer without retraction or bulging. No fluid or purulent material visualized behind the TM. Handle of malleus, umbo, cone of light, pars tensa/ flaccid all easily visualized. NOSE - Midline and without cyanosis. No epistaxis or purulent drainage noted. MOUTH/OROPHARYNX - Without perioral cyanosis. Buccal mucosa pink and moist and without leukoplakia. Tongue midline with equal elevation of palate bilaterally. No tonsillar hypertrophy, erythema, or exudates noted. [] dentition noted. NECK - Neck with FROM. Supple to palpation. No lymphadenopathy noted. No nuchal rigidity. LUNGS - Chest wall symmetric without accessory muscle use, intercostals retractions, or central cyanosis. Normal vesicular breath sounds CTA B/L. No wheezes, rales, or rhonchi appreciated. CARDIAC - RRR with S1/S2. No murmur, rubs, or gallops appreciated. EXTREMITIES - No clubbing or peripheral cyanosis. No pretibial edema present. + 5/5 strength noted in UE/LE bilaterally. NEUROLOGIC - Cranial nerves II through XII grossly intact. Sensory intact to light touch throughout. PSYCH - A&Ox3 and cooperates fully with examiner. Pt is very pleasant and interacts well with examiner. Medical Decision & Procedures ER Provider Diagnostic Interpretation: HEAD WITHOUT CONTRAST (CT) CT DOSE: 537.48 mGy.cm HISTORY: Mental status change headache, dizziness TECHNIQUE: Multiaxial CT images of the head were performed without the use of intravenous contrast. A dose lowering technique was utilized adhering to the principles of ALARA. Comparison: 06/17/2010 Findings: The paranasal sinuses and mastoid air cells are clear. The calvarium and skull base are intact. The ventricles and sulci are within normal limits. There is no mass, hematoma, midline shift, or acute infarct. Impression: No acute intracranial abnormality. The above report was generated using voice recognition software. It may contain grammatical, syntax or spelling errors. Electronically signed by: Konrad Ch M.D. 12/12/2017 8:30 AM Dictated Date/Time: 12/12/2017 8:30 AM Laboratory Results 12/12/17 08:10 Red Blood Count 5.23, Mean Corpuscular Volume 87.8, Mean Corpuscular Hemoglobin 29.8, Mean Corpuscular Hemoglobin Concent 34.0, Mean Platelet Volume 9.6, Neutrophils (%) (Auto) 65.6, Lymphocytes (%) (Auto) 25.3, Monocytes (%) (Auto) 7.3, Eosinophils (%) (Auto) 1.4, Basophils (%) (Auto) 0.2, Neutrophils # (Auto) 4.33, Lymphocytes # (Auto) 1.67, Monocytes # (Auto) 0.48, Eosinophils # (Auto) 0.09, Basophils # (Auto) 0.01 12/12/17 08:10 Test 12/12/17 08:10 White Blood Count 6.59 K/uL (4.8-10.8) Red Blood Count 5.23 M/uL (4.2-5.4) Hemoglobin 15.6 g/dL (12.0-16.0) Hematocrit 45.9 % (37-47) Mean Corpuscular Volume 87.8 fL (80-100) Mean Corpuscular Hemoglobin 29.8 pg (25-34) Mean Corpuscular Hemoglobin Concent 34.0 g/dl (32-36) Platelet Count 241 K/uL (130-400) Mean Platelet Volume 9.6 fL (7.4-10.4) Neutrophils (%) (Auto) 65.6 % Lymphocytes (%) (Auto) 25.3 % Monocytes (%) (Auto) 7.3 % Eosinophils (%) (Auto) 1.4 % Basophils (%) (Auto) 0.2 % Neutrophils # (Auto) 4.33 K/uL (1.4-6.5) Lymphocytes # (Auto) 1.67 K/uL (1.2-3.4) Monocytes # (Auto) 0.48 K/uL (0.11-0.59) Eosinophils # (Auto) 0.09 K/uL (0-0.5) Basophils # (Auto) 0.01 K/uL (0-0.2) RDW Standard Deviation 43.6 fL (36.4-46.3) RDW Coefficient of Variation 13.5 % (11.5-14.5) Immature Granulocyte % (Auto) 0.2 % Immature Granulocyte # (Auto) 0.01 K/uL (0.00-0.02) Prothrombin Time 10.2 SECONDS (9.0-12.0) Prothromb Time International Ratio 1.0 (0.9-1.1) Activated Partial Thromboplast Time 25.9 SECONDS (21.0-31.0) Partial Thromboplastin Ratio 1.0 Anion Gap 6.0 mmol/L (3-11) Estimated GFR () 81.2 Estimated GFR (Non- 70.1 BUN/Creatinine Ratio 13.4 (10-20) Calcium Level 9.0 mg/dl (8.5-10.1) Magnesium Level 2.1 mg/dl (1.8-2.4) Total Bilirubin 0.5 mg/dl (0.2-1) Aspartate Amino Transf (AST/SGOT) 20 U/L (15-37) Alanine Aminotransferase (ALT/SGPT) 16 U/L (12-78) Alkaline Phosphatase 77 U/L (45-117) Troponin I < 0.015 ng/ml (0-0.045) Total Protein 7.0 gm/dl (6.4-8.2) Albumin 3.6 gm/dl (3.4-5.0) Globulin 3.4 gm/dl (2.5-4.0) Albumin/Globulin Ratio 1.1 (0.9-2) Thyroid Stimulating Hormone (TSH) 0.235 uIu/ml (0.300-4.500) Free Thyroxine 1.24 ng/dl (0.80-1.60) Lyme Disease IgG Antibody NEG (NEG) Lyme Disease IgM Antibody NEG (NEG) Medications Administered Medications (Trade) Dose Ordered Sig/Kim Route Start Time Stop Time Status Last Admin Dose Admin Meclizine HCl (Antivert Tab) 25 mg NOW STAT PO 12/12/17 08:00 12/12/17 08:04 DC 12/12/17 08:35 25 MG Medical Decision Patient was seen and evaluated as above in room B3. Review was performed of nursing notes and vital signs. After obtaining a thorough history and physical examination the above work up was performed. She presents to us today with a headache, and dizziness. Dizziness by history appears to be vertigo. On exam there is no neurovascular deficit appreciated. I do not suspect CVA. CBC reveals no leukocytosis or anemia. No concerning metabolic abnormality. TSH was abnormal however the free T4 was normal and she does take medication for thyroid abnormalities. A bedside EKG was performed as well, rate of 60 bpm, with left anterior fascicular block. This was compared with EKG of April 21, 2015 and no significant change was found. It is important note that the left anterior fascicular block was also noted at that time. While here in the department she was given meclizine and was feeling slightly better. Given that the patient describes the dizziness as the room spinning, and she also notes a history that certainly sounds like a treatment for vertigo I believe that is most likely what she is experiencing. In regard to the headache, I question if this is perhaps a tension headache. I did discuss with her how a mini stroke would not be present on the workup that we did here today. However, I do not think that her symptoms are consistent with such. CT was also performed which was found to be negative. If there was a stroke that occurred weeks ago when this all began I would expect this to likely be evident on CT scan. Furthermore , her examination is quite unremarkable and after discussing the case with the attending physician I do believe that she is stable to closely follow with her family doctor or return with worsening. The patient was educated upon management , had questions answered prior to discharge, and was discharged home in good condition. She will be given a short prescription for the meclizine. In the evaluation and treatment of this patient, the following differential diagnoses were considered: Migraine Headache, Intracranial Hemorrhage, Subdural Hematoma, Subarachnoid Hemorrhage, Cerebral Aneurysm, Temporal/Giant Cell Arteritis, Tension Headache, Meningitis, Encephalitis, or Hydrocephalus. Impression Primary Impression: Vertigo Departure Information Dispostion Home / Self-Care Condition GOOD Prescriptions Meclizine Hcl (MECLIZINE HCL) 25 Mg Tab 1 TAB PO TID Y for Dizziness or Vertigo for 10 Days, #30 TAB Prov: Pelon Bauer PA-C 12/12/17 Referrals Stuart [email or web address] (PCP) Patient Instructions My [facility] Additional Instructions You were seen in the emergency department for dizziness/vertigo. At this time I recommend meclizine, 25 mg up to 3 times a day for your dizziness /vertigo symptoms. Please call your family doctor to schedule follow-up. Please rest and stay well-hydrated. Please return with any new/concerning symptoms.
== END 2017-12-12 10:42 | disposition home or self-care (01) ==
LOC: C.EDB 07:29
DX: R42 Dizziness and giddiness (principal)

== ENCOUNTER → 2018-01-16 | Outpatient (CLI) | payer BC ==
[~2018-01-16] MED LIST changes: -IBUP-1050 PO; +OPTIRAY 320 IV PRN
--- NOTE | 2018-01-16 11:52 | DIAGNOSTIC IMAGING REPORT ---
ABD/PELVIS COMBO HISTORY: 77 years-old Female MICROSCOPIC HEMATURIA, NEPHROLITHIASIS acute hematuria COMPARISON: CT abdomen and pelvis 10/26/2016 TECHNIQUE: Multiple axial CT images of the abdomen and pelvis were obtained both with and without the use of 120 mL Optiray 320 IV contrast. A dose lowering technique was used consistent with the principals of MILLIE. FINDINGS: Subsegmental atelectasis/scarring of the inferior segment lingula. Lung bases otherwise generally clear. No pneumatosis or pneumoperitoneum identified. Coronary arterial calcifications are noted. Unchanged water attenuating 2.4 x 2.8 cm structure is noted within the right epicardial fat suggesting a pericardial cyst. Low attenuating lesions about the liver measuring up to 9 mm within the left hepatic lobe suggests hepatic cysts. No intrahepatic biliary ductal dilation. Patent portal vein. Spleen, pancreas and left adrenal gland are unremarkable. There is a 12 x 10 mm low attenuating lesion of the right adrenal gland compatible with benign adenoma. There are multiple bilateral nonobstructing renal calculi measuring up to 5 mm within the superior pole left kidney. There is no ureteral calculi or obstructive uropathy. No bladder calculi identified. Low attenuating lesions of the bilateral kidneys are noted measuring up to 11 mm on the right. Suggesting renal cysts. 2.2 x 1.9 cm cyst of the interpolar right kidney demonstrates layering milk of calcium. No filling defects are identified within the bilateral collecting systems, renal pelves or ureters. Ureteral jets are seen within the bladder. Prior hysterectomy. No adnexal mass lesions. Moderate atherosclerosis of the aorta and branch vessels without aneurysm. Patent IVC. No bulky adenopathy. There is no bowel obstruction or focal bowel wall thickening. Colonic diverticulosis without diverticulitis. The appendix is not seen and may be surgically absent. No ascites or mesenteric inflammatory changes. Bilateral breast augmentation devices are partially imaged. Degenerative changes of the lumbar spine with severe multilevel facet arthrosis. Lumbar levoscoliosis. IMPRESSION: 1. Bilateral nonobstructing nephrolithiasis without ureteral calculi or obstructive uropathy. 2. Colonic diverticulosis without diverticulitis. 3. Prior hysterectomy. 4. Additional findings as above. The above report was generated using voice recognition software. It may contain grammatical, syntax or spelling errors. Electronically signed by: Porter Pillai M.D. 01/16/2018 11:50 AM Dictated Date/Time: 01/16/2018 11:39 AM
== END | disposition home or self-care (01) ==
LOC: C.CTS 10:38
PROVIDERS: ATTEND Urology
DX: N20.0 Calculus of kidney (principal); R31.29 Other microscopic hematuria; K57.30 Diverticulosis of large intestine without perforation or abscess without bleeding; Z90.710 Acquired absence of both cervix and uterus

== ENCOUNTER → 2018-03-28 | Outpatient (CLI) | payer BC ==
[~2018-03-28] MED LIST changes: -OPTIRAY 320 IV PRN
== END | disposition home or self-care (01) ==
LOC: C.PATHSPEC 10:01
PROVIDERS: ATTEND Urology
DX: R31.9 Hematuria, unspecified (principal)

== ENCOUNTER → 2018-04-05 | Outpatient (CLI) | payer BC ==
[2018-04-05 12:30] LABS: BLOOD UREA NITROGEN 9 mg/dl (7-18); CREATININE 0.88 mg/dl (0.60-1.20)
== END | disposition home or self-care (01) ==
LOC: C.LAB 10:05
PROVIDERS: ATTEND Psychiatry & Neurology Neurology
DX: R51 Headache (principal); R09.89 Other specified symptoms and signs involving the circulatory and respiratory systems; I65.29 Occlusion and stenosis of unspecified carotid artery

== ENCOUNTER → 2018-04-08 | Outpatient (CLI) | payer BC ==
[~2018-04-08] MED LIST changes: +GADAVIST IV PRN
--- NOTE | 2018-04-08 12:08 | DIAGNOSTIC IMAGING REPORT ---
MR ANGIOGRAM OF THE NECK COMBO CLINICAL HISTORY: Internal carotid artery stenosis. Dizziness. Headaches. COMPARISON STUDY: MR angiogram of the neck dated 11/06/2013. TECHNIQUE: Axial 3-D [id number] MR angiography of the neck is performed. Subsequently, following the IV administration of 5.5 cc of Gadavist. Coronal MR angiogram of the neck was performed to corroborate the findings. 3-D reformats are created and assessed. All measurements were calculated based on NASCET criteria. FINDINGS: Visualized portions of the thoracic aorta are normal in caliber. The aortic arch demonstrates standard 3-vessel anatomy. There is likely complete occlusion of the left subclavian artery below the thoracic inlet. The right subclavian artery is patent noting less than 50% luminal narrowing. The right common carotid artery is widely patent. There is less than 50% narrowing at the origin of the right internal carotid artery. The remainder of the right internal carotid artery and the external carotid artery are clear. The left common carotid artery is widely patent, as is the left internal carotid artery. High-grade stenosis is suggested the origin of the left external carotid artery. The vertebral arteries are widely patent. The vertebral arteries are codominant. There is loss of the left vertebral artery flow void on the axial unenhanced series, positive due to slow or reversal of flow. The visualized intracranial vessels at the skull base appear patent. IMPRESSION: 1. 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 2. 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 3. There is less than 50% stenosis at the origin of the right internal carotid artery secondary to soft plaque. 4. The internal carotid arteries are otherwise widely patent bilateral. 5. The vertebral arteries are patent. Loss of the left vertebral artery flow-void on the axial unenhanced sequence is likely due to slow or reversed flow. 6. High-grade stenosis is seen at the origin of the left external carotid artery. Electronically signed by: Lauro Gillis M.D. 04/08/2018 12:06 PM Dictated Date/Time: 04/08/2018 11:57 AM
--- NOTE | 2018-04-08 12:11 | DIAGNOSTIC IMAGING REPORT ---
MR ANGIOGRAM OF THE BRAIN CLINICAL HISTORY: Dizziness. Headache. COMPARISON STUDY: MR angiogram of the brain dated 06/01/2009. MR angiogram of the neck performed concurrently on 04/08/2018. TECHNIQUE: 3-D [id number] MR angiography of the intracranial circulation is performed. 3-D tumble views are created and assessed. IV contrast was not administered for this examination. FINDINGS: The [place] of [place] is developmentally complete. The internal carotid arteries are widely patent bilaterally, as are the anterior and middle cerebral arteries. The vertebrobasilar system and posterior cerebral arteries are widely patent. There is loss of the left vertebral artery flow void at the skull base. This is likely related to slow flow or reversal of flow, and this was shown to be patent on today's MR angiography of the neck. The vertebral arteries appear codominant. There is no aneurysm, high-grade stenosis, or focal vessel cutoff seen throughout the intracranial circulation. The brain parenchyma is normal as visualized. IMPRESSION: 1. There is loss of the left vertebral artery flow-void at the skull base, likely due to subclavian steal phenomenon. See report of MR angiogram of the neck performed concurrently for detailed findings. 2. Otherwise unremarkable MR angiogram of the brain. Electronically signed by: Lauro Gillis M.D. 04/08/2018 12:10 PM Dictated Date/Time: 04/08/2018 12:07 PM
== END | disposition home or self-care (01) ==
LOC: C.MRI 10:26
PROVIDERS: ATTEND Psychiatry & Neurology Neurology
DX: I65.29 Occlusion and stenosis of unspecified carotid artery (principal)